=== PATIENT | female | born 1955 | race African-American/Black ===

== ENCOUNTER 2018-07-06 07:17 | Day surgery (SDC) | payer BC, OTHER ==
[2018-07-01 12:03] VITALS: BMI 24.5
[2018-07-06] MEDS ORDERED: PROPOFOL 20 ML ONE ×2 (07:20)
[2018-07-06] MEDS ORDERED: LIDOCAINE HCL/PF 2% SDV 5ML VIAL ONE (07:51)
[2018-07-06 16:44] VITALS: TEMP 97.9
[2018-07-06 16:50] VITALS: BP 114/78; PULSE 75
== END 2018-07-06 09:10 | disposition home or self-care (01) ==
LOC: FASU-ENDO 07:17
PROVIDERS: ATTEND Internal Medicine Gastroenterology
PROC: 0DJD8ZZ Inspection of Lower Intestinal Tract, Via Natural or Artificial Opening Endoscopic (ICD-10-PCS; principal; 2018-07-06 08:12)
DX: Z12.11 Encounter for screening for malignant neoplasm of colon (principal)

== ENCOUNTER 2022-05-18 08:27 | Day surgery (SDC) | payer OTHER, BC ==
[2022-05-14 12:53] VITALS: BMI 24.3
[2022-05-18 09:07] VITALS: RESP 18; TEMP 97.2
[2022-05-18] MEDS ORDERED: METOPROLOL TARTRATE 5 MG/5 ML VIAL ONE (09:44)
[2022-05-18 10:44] VITALS: BP 115/90; PULSE 88
== END 2022-05-18 10:45 | disposition home or self-care (01) ==
LOC: FASU-ENDO 08:27
PROVIDERS: ATTEND Internal Medicine Gastroenterology
PROC: 0DB68ZX Excision of Stomach, Via Natural or Artificial Opening Endoscopic, Diagnostic (ICD-10-PCS; 2022-05-18)
PROC: 0DB98ZX Excision of Duodenum, Via Natural or Artificial Opening Endoscopic, Diagnostic (ICD-10-PCS; principal; 2022-05-18 09:48)
DX: K29.50 Unspecified chronic gastritis without bleeding (principal); K31.7 Polyp of stomach and duodenum; R12 Heartburn
CPT/HCPCS: 88305-TC; 88342-TC